=== PATIENT | male | born 1995 | race Caucasian/White ===

== ENCOUNTER 2021-12-19 16:37 | Outpatient (REF) | payer OTHER, SELFPAY ==
--- NOTE | 2021-12-19 16:00 | SKI_PTH ---
PATIENT: Wilmar Silver LOC: [facility] U#:[id number] AGE/SX: 26/M ROOM: RE12/19/[address]: Nicho Perdomo : 1995 BED: DIS: 12/19/2021 SPEC #: [id number] RECD: 12/20/21 12:40 STATUS: CORTEZ REYuki #: [id number] RAVIN: 12/19/21 16:[address]: Nicho Perdomo DEPT: Surgical Specimen RECD BY: Shirin Romo ENTERED: 12/20/21 12:41 SP TYPE: KARY ARDON DR: Oumar Adorno Tissues: 1 - SKIN BIOPSY(SHAVE/PUNCH) 2 - SKIN BIOPSY(SHAVE/PUNCH) 3 - SKIN BIOPSY(SHAVE/PUNCH) Procedures: SKIN LEVEL 4 Comments: [id number]
== END 2021-12-19 16:38 | disposition home or self-care (01) ==
LOC: NCHCN 16:37
PROVIDERS: Visit Provider Family Medicine
DX: D22.5 Melanocytic nevi of trunk (principal); D22.71 Melanocytic nevi of right lower limb, including hip; R89.6 Abnormal cytological findings in specimens from other organs, systems and tissues
CPT/HCPCS: 88305

== ENCOUNTER 2022-02-22 11:20 | Outpatient (REF) | payer OTHER, SELFPAY ==
[2022-02-22 15:58] LABS: Abs Immature Grans 0.02 10^3/uL (0.0-0.06); Absolute Basophil Count 0.04 10^3/uL (0.0-0.2); Absolute Eosinophil Count 0.19 10^3/uL (0.0-0.7); Absolute Lymphocyte Count 1.54 10^3/uL (1.2-3.4); Absolute Monocyte Count 0.38 10^3/uL (0.1-0.8); Absolute Neutrophil Count 3.23 10^3/uL (1.2-6.7); Basophils % 0.7; Eosinophils % 3.5; HCT 47.3 % (40.0-50.0); HGB 16.6 g/dL (13.5-17.5); Immature Grans % 0.4; Lymphocytes % 28.5; MCH 31.9 pg (27.0-33.0); MCHC 35.1 % (32.0-36.0); MCV 90.8 fL (80-95); MPV 10.5 fL (8.0-11.0); Neutrophils % 59.9; Platelet Count 244 10^3/uL (130-400); RBC 5.21 10^6/uL (4.36-5.78); RDW 11.4 % (11.8-14.1)
[2022-02-22 16:09] LABS: ALT 42 U/L (16-63); AST 23 U/L (15-37); Albumin 4.6 g/dL (3.4-5.0); Alkaline Phosphatase 114 U/L (46-116); Anion Gap 5.6 mmol/L (3-11); BUN 15 mg/dL (7-18); Bilirubin, Total 0.6 mg/dL (0.2-1.0); CO2 31.4 mmol/L (21.0-32.0); Calcium 9.4 mg/dL (8.5-10.1); Chloride 101 mmol/L (98-107); Glucose 80 mg/dL (74-106); Lipase 75 U/L (73-393); Potassium 4.7 mmol/L (3.5-5.1); Sodium 138 mmol/L (136-145); Total Protein 8.1 g/dL (6.4-8.2)
== END 2022-02-22 11:21 | disposition home or self-care (01) ==
LOC: NCHCN 11:20
PROVIDERS: Visit Provider Family Medicine
DX: N50.811 Right testicular pain (principal); R10.11 Right upper quadrant pain
CPT/HCPCS: 80053; 83690; 85025

== ENCOUNTER 2025-03-23 16:04 | Outpatient (REF) | payer OTHER, SELFPAY ==
[2025-03-23 21:31] LABS: Hemoglobin A1C 5.3 % (<5.7)
[2025-03-23 21:34] LABS: ALT 36 U/L (16-63); AST 28 U/L (15-37); Albumin 4.6 g/dL (3.4-5.0); Alkaline Phosphatase 113 U/L (46-116); Anion Gap 4.3 mmol/L (3-11); BUN 16 mg/dL (7-18); Bilirubin, Total 0.5 mg/dL (0.2-1.0); CO2 30.7 mmol/L (21.0-32.0); Calcium 9.4 mg/dL (8.5-10.1); Calculated LDL 124 mg/dL (<100); Chloride 102 mmol/L (98-107); Cholesterol 225 mg/dL (<200); Estimated GFR 104.48 (mL/min/1.73m2); Glucose 101 mg/dL (74-106); HDL Cholesterol 61 mg/dL (>or=40); Potassium 4.3 mmol/L (3.5-5.1); Sodium 137 mmol/L (136-145); Total Protein 8.2 g/dL (6.4-8.2); Triglyceride 204 mg/dL (<150)
== END 2025-03-23 16:05 | disposition home or self-care (01) ==
LOC: NCHCN 16:04
PROVIDERS: Visit Provider Family Medicine
DX: K76.0 Fatty (change of) liver, not elsewhere classified (principal); Z13.220 Encounter for screening for lipoid disorders; Z13.1 Encounter for screening for diabetes mellitus
CPT/HCPCS: 80053; 80061; 83036